=== PATIENT | male | born 1965 | race Caucasian/White ===

== ENCOUNTER 2023-07-08 14:38 | Emergency (ER) | payer SELFPAY ==
[2023-07-08 14:46] VITALS: BP 203/144; PULSE 66; RESP 18; TEMP 37.1; O2SAT 96
--- NOTE | 2023-07-08 14:56 | ED.GENADULT ---
HPI - General Adult General Stated complaint: Body Aches History of Present Illness HPI narrative: Patient presents with generalized body aches and headache. Patient is homeless and has been sleeping outside in the cold. Patient states his home has been condemned and he has nowhere to go to stay warm. Patient denies any shortness of breath no chest pain but has not taken his medications for over 6 months. Patient states he has not had access to medications for over 6 months and feels that he has a headache at the present from elevated blood pressure. Patient denies any family members that could help him states he is homeless and is here for help. Related Data Allergies Allergy/AdvReac Type Severity Reaction Status Date / Time No Known Allergies Allergy Verified 07/08/23 14:59 Review of Systems Review of Systems: CONSTITUTIONAL: Denies fever, chills, or sweats. EYES: Denies visual changes, redness, or discharge. ENT: Denies rhinorrhea, congestion, sore throat, or otalgia. CARDIOVASCULAR: Denies chest pain, palpitations, or edema. RESPIRATORY: Denies cough or dyspnea. GASTROINTESTINAL: Denies abdominal pain, nausea, vomiting, or diarrhea. GENITOURINARY: Denies dysuria or hematuria. SKIN: Denies rash or itching. MUSCULOSKELETAL: Denies back pain, joint pain, or myalgia. NEUROLOGIC: Denies headache, numbness, or weakness. PSYCHIATRIC: Denies anxiety or depression. PMFSH Comments At time of signature, agree with nursing past medical, surgical, social and family history. There is no relevant family history pertinent to the presenting complaint Exam Narrative: GENERAL: Well-appearing, well-nourished, and in no acute distress. HEAD: Normocephalic, atraumatic. EYES: PERRLA and EOMI. ENT: Nares clear, no rhinorrhea or epistaxis. Mucous membranes moist. NECK: Supple. CHEST: Clear to auscultation. No respiratory distress. HEART: Regular rate and rhythm. No murmur heard. Normal peripheral pulses. ABDOMEN: Soft, nontender, nondistended, normal active bowel sounds. EXTREMITIES: Normal range of motion. No edema. SKIN: Warm, dry, no rash. NEURO: No focal deficits. Alert and oriented x3. Narciso Coma Scale Eye Opening: Spontaneous 4 Narciso Coma Scale Motor: Obeys Commands 6 Narciso Coma Scale Verbal: Oriented 5 Narciso Coma Scale Total 15 Course Course Level of Care: Express Care Visit Vital Signs Vital signs: Vital Signs Temperature 37.1 C 07/08/23 14:46 Pulse Rate 66 07/08/23 14:46 Respiratory Rate 18 07/08/23 14:46 Blood Pressure 203/144 H 07/08/23 14:46 Pulse Oximetry 96 07/08/23 14:46 Oxygen Delivery Room Air 07/08/23 14:46 Temperature 37.1 C 07/08/23 14:46 Pulse Rate 66 07/08/23 14:46 Respiratory Rate 18 07/08/23 14:46 Blood Pressure 203/144 H 07/08/23 14:46 Pulse Oximetry 96 07/08/23 14:46 Oxygen Delivery Room Air 07/08/23 14:46 Transfer Transfered to: [facility] Transportation: ALS Transfer rationale: elevated blood pressure higher level of care Accepting physician: Mariana Villarreal comments: higher level of care Medical Decision Making Vital Signs Vital Signs: Vital Signs Temperature 37.1 C 07/08/23 14:46 Pulse Rate 66 07/08/23 14:46 Respiratory Rate 18 07/08/23 14:46 Blood Pressure 203/144 H 07/08/23 14:46 Pulse Oximetry 96 07/08/23 14:46 Oxygen Delivery Room Air 07/08/23 14:46 Temperature 37.1 C 07/08/23 14:46 Pulse Rate 66 07/08/23 14:46 Respiratory Rate 18 07/08/23 14:46 Blood Pressure 203/144 H 07/08/23 14:46 Pulse Oximetry 96 07/08/23 14:46 Oxygen Delivery Room Air 07/08/23 14:46 Discharge Plan Discharge Clinical Impression: Homeless, Elevated blood pressure reading in office with diagnosis of hypertension, Generalized body aches, Medication nonadherence due to psychosocial problem Patient Disposition: Acute Care Hospital Condition: Stable Additional Instructi
--- NOTE | 2023-07-08 15:42 | PC.NURSE ---
Patient has elevated B/P. No new neuro deficits. Will transfer to [facility]. EMS called.
== END 2023-07-08 15:43 | disposition short-term general hospital (02) ==
PROVIDERS: Emergency Provider Nurse Practitioner Family
DX: I10 Essential (primary) hypertension (principal); R52 Pain, unspecified; Z91.148 Patient's other noncompliance with medication regimen for other reason; Z59.00 Homelessness unspecified
CPT/HCPCS: 99215; G0463

== ENCOUNTER 2023-10-08 22:04 | Inpatient (IN) | payer OTHER, MEDICAID, SELFPAY ==
--- NOTE | ~2023-10-08 | CT_ITS ---
EXAMINATION: CTA chest PE protocol DATE: 10/10/2023 16:51 INDICATION: Shortness of breath. TECHNIQUE: Computed tomography angiography (CTA) of the chest was performed with 100 mL Omnipaque-350 intravenous contrast timed to evaluate the pulmonary arteries. Coronal maximum intensity projection 3D-reconstructions were created by the technologist. Automated exposure control and iterative reconst ruction technique were employed. The dose-length product was 183.21 mGy-cm. COMPARISON: None. FINDINGS: There is severe emphysema. There is mild atelectasis bilaterally. There is a cluster of sma ll nodules in right upper lobe. There is a 6 mm nodule in right middle lobe. There is a 4 mm nodule r ight middle lobe. There are airspace opacities in basilar left lower lobe. There is a cluster of smal l nodules in lingula. There are small pleural effusions. The heart size is normal. No pericardial eff usion. There is no pulmonary embolus. There is a 12 mm cyst in right kidney. There is mild thoracic s pondylosis. IMPRESSION: 1. No pulmonary embolus. 2. Severe emphysema. 3. Small pleural effusions. 4. Scattered mild lung findings, likely infection. Noncontrast low-dose chest CT is recommended in 1- 3 months to exclude malignancy. Reviewed, dictated and finalized at location A. IMETER OPERATOR IMPRESSION: 1. No pulmonary embolus. 2. Severe emphysema. 3. Small pleural effusions. 4. Scattered mild lung findings, likely infection. Noncontrast low-dose chest C T is recommended in 1-3 months to exclude malignancy.
--- NOTE | ~2023-10-08 | US_ITS ---
EXAMINATION: US retroperitoneal duplex ltd DATE: 10/09/2023 09:59 INDICATION: Hypertension. TECHNIQUE: Multiple grayscale, color Doppler, and pulsed Doppler images of the kidneys and renal doreen laure were obtained. COMPARISON: None. FINDINGS: The aorta peak systolic velocity is 115 cm/s. The right renal artery peak systolic velocity is 69 cm/ s in the proximal segment, 42 cm/s in the mid segment, and 43 cm/s in the distal segment. The left re nal artery peak systolic velocity is 40 cm/s in the proximal segment, 38 cm/s in the mid segment, and 27 cm/s in the distal segment. IMPRESSION: 1. No Doppler evidence of renal artery stenosis. Reviewed, dictated and finalized at location A. TION MEDICINE SPECIALIST
--- NOTE | ~2023-10-08 | US_ITS ---
EXAMINATION: US renal BI DATE: 10/09/2023 09:57 INDICATION: Hypertension. TECHNIQUE: Multiple ultrasound grayscale images of the kidneys were obtained. COMPARISON: None. FINDINGS: The right kidney measures 12.3 x 3.9 x 6.6 cm. The left kidney measures 11.1 x 4.8 x 5.0 cm. The kidn eys demonstrate normal parenchymal echogenicity. There are cysts in right kidney measuring up to 2.5 cm. There is no hydronephrosis. The bladder is decompressed. IMPRESSION: 1. Normal kidney sizes. No hydronephrosis. Reviewed, dictated and finalized at location A. ET COMMISSIONER
--- NOTE | ~2023-10-08 | XR_ITS ---
Portable chest x-ray Comparison: None Clinical History: Shortness of breath Findings: There is bibasilar interstitial prominence with underlying COPD pattern. Cardiomediastina l silhouette is stable. Bones and soft tissues are unremarkable. Impression: COPD pattern of the lungs. Correlate for superimposed other chronic bibasilar interstitial disease, o r less likely, atypical infection. Reviewed, dictated and finalized at location . YARD PAINTING SUPERVISOR Impression: COPD pattern of the lungs. Correlate for superimposed other chronic bibasilar i nterstitial disease, or less likely, atypical infection.
--- NOTE | ~2023-10-08 | XR_ITS ---
EXAMINATION: XR chest 1V portable DATE: 10/10/2023 12:40 INDICATION: Cough. TECHNIQUE: A single frontal view of the chest was obtained. COMPARISON: Chest single view 10/08/2023 FINDINGS: There are lucencies in the lungs, consistent with emphysema. There is mild atelectasis vers us scarring at left lung base. No pleural effusion or pneumothorax. The heart size is normal. There i s an old healed right rib fracture. IMPRESSION: 1. Emphysema. 2. Mild atelectasis versus scarring at left lung base. Reviewed, dictated and finalized at location A. E REDUCTION COORDINATOR
[2023-10-08 22:01] VITALS: BP 195/130; PULSE 106; RESP 25; TEMP 37.2; O2SAT 92
--- NOTE | 2023-10-08 22:09 | ECG_ITS ---
Measurements Intervals [place] Rate: 105 P: 74 AL: 132 QRS: 71 QRSD: 98 T: 70 QT: 352 QTc: 465 Interpretive Statements SINUS TACHYCARDIA POSSIBLE LEFT ATRIAL ENLARGEMENT [-0.1mV P-WAVE IN V1/V2] ABNORMAL ECG NO PREVIOUS ECG AVAILABLE FOR COMPARISON Electronically Signed On 10-09-2023 8:40:54 MURAL ARTIST by Saud Scott M.D.
[2023-10-08 22:12] VITALS: O2SAT 100
[2023-10-08 22:13] VITALS: PULSE 107
[2023-10-08] MEDS: NITROGLYCERIN SL 0.4 MG TABLET 0.8 MG SUBLINGUAL (22:27)
[2023-10-08 22:28] LABS: Basophils Absolute Auto 0.1 K/mm3 (0.0-0.1); Basophils Percent Auto 0.8 % (0.2-1.2); Eosinophils Absolute Auto 0.2 K/mm3 (0-0.3); Hemoglobin 14.4 g/dL (14.0-18.0); Immature Granulocyte Absolute 0.03 K/mm3 (0.00-0.031); Immature Granulocyte Percent A 0.3 % (0-0.5); Lymphocytes Percent Auto 15.8 % (18.3-44.2); Mean Corpuscular HGB Conc 33.5 g/dl (32-36); Mean Corpuscular Hemoglobin 31.3 pg (26-34); Mean Corpuscular Volume 93.5 fl (80-100); Mean Platelet Volume 9.9 fl (7.4-10.4); Monocytes Percent Auto 9.4 % (2.6-8.5); Neutrophils Absolute Auto 7.7 K/mm3 (1.3-6.7); Neutrophils Percent Auto 71.7 % (45.5-73.1); Platelet Count Result 310 k/mm3 (150-375); Red Cell Distribution Width 14.8 % (11.5-14.5); White Blood Count 10.8 K/mm3 (4.5-10.0)
[2023-10-08 22:45] LABS: Alanine Aminotransferase 34 U/L (6-50); Albumin Level 3.6 g/dL (3.5-5.1); Alkaline Phosphatase 93 U/L (38-126); Anion Gap 8 mmol/L (8-16); Aspartate Amino Transferase 52 U/L (17-59); Bilirubin,Total 0.6 mg/dL (0.2-1.3); Blood Urea Nitrogen 20 mg/dL (9-20); Calcium 8.2 mg/dL (8.4-10.2); Carbon Dioxide 22 mmol/L (22-30); Chloride 109 mmol/L (98-107); Estimated CRCL calculation 65 ml/min; Estimated Glomerular Filt Rate > 60; Glucose 101 mg/dL (65-110); Lactic Acid Reflex 1.2 mmol/L (0.7-2.0); Phosphorus 3.7 mg/dL (2.5-4.5); Potassium 3.6 mmol/L (3.4-5.0); Sodium 139 mmol/L (137-145)
[2023-10-08 22:50] LABS: INR 0.9; Partial Thromboplastin Time 26.9 SECONDS (22.3-36.8); Prothrombin Time 12.3 Seconds (11.1-14.7)
[2023-10-08 22:56] LABS: NT Pro B Type Natriuretic Pept 2130 pg/mL (19.9-100); Troponin I < 0.012 ng/mL (0.000-0.034)
--- NOTE | 2023-10-08 23:09 | ED.GENADULT ---
HPI - General Adult General Chief complaint: Shortness of Breath/Dyspnea Stated complaint: resp distress History of Present Illness HPI narrative: This is a 58-year-old male presenting ED with chief complaint of shortness of breath. EMS was called to custodial for dyspnea. Patient states he awoke frome sleep unable to breath. He also had some just chest discomfort at this time. When EMS arrived he was profoundly hypertensive and hypoxic. Given nitropaste. Was unable to tolerate BiPAP. Placed on nasal cannula with improvement to 95%. Related Data Allergies Allergy/AdvReac Type Severity Reaction Status Date / Time No Known Allergies Allergy Verified 07/08/23 14:59 Exam Narrative: APPEARANCE: No apparent distress. Head: atraumatic. EYES: EOMI, NOSE: Atraumatic NECK: Trachea midline RESPIRATORY: Tachypneic, 1 word dyspnea, rales in all zhao, point of care cardiac thoracic ultrasound showed pulmonary edema CARDIOVASCULAR: RRR, ABDOMINAL: Non-distended MUSCULOSKELETAl: No obvious deformities NEURO: Alert. Moving 4/4 extremities SKIN:: Warm, dry. Normal color PSYCHIATRIC: Normal affect Course Vital Signs Vital signs: Vital Signs Temperature 98.9 F 10/08/23 22:01 Pulse Rate 106 H 10/08/23 22:01 Respiratory Rate 25 H 10/08/23 22:01 Blood Pressure 195/130 H 10/08/23 22:01 Pulse Oximetry 92 10/08/23 22:01 Oxygen Delivery Room Air 10/08/23 22:01 Temperature 98.9 F 10/08/23 22:01 Pulse Rate 78 10/08/23 23:15 Respiratory Rate 18 10/08/23 23:15 Blood Pressure 157/93 H 10/08/23 23:15 Pulse Oximetry 100 10/08/23 23:15 Oxygen Delivery BiPAP 10/08/23 22:12 Medical Decision Making [facility] Narrative Medical decision making narrative: -Course: 58-year-old male presenting with acute respiratory distress. Found to be hypertensive over 220 arrival. POC thoracic ultrasound showed edema in all lung zhao. Given 2 sublingual nitros and transdermal nitro patch. Placed on BiPAP. Respiratory status improved. Presentation consistent with SCAPE/flash pulmonary edema. Patient will be admitted to the IMU for further management. -DDX includes but is not limited to: skate, COPD, pneumonia viral illness -Independent interpretation of studies: white count 10.8. Metabolic panel unremarkable. Troponin undetectable. BNP 1999. -Discussion of Management/Consultants: Juan Duran Hospitalist -Interventions:SL .4 nitro x2. nitropaste transdermal, -Shared decision making / Disposition: Admitted Vital Signs Vital Signs: Vital Signs Temperature 98.9 F 10/08/23 22:01 Pulse Rate 106 H 10/08/23 22:01 Respiratory Rate 25 H 10/08/23 22:01 Blood Pressure 195/130 H 10/08/23 22:01 Pulse Oximetry 92 10/08/23 22:01 Oxygen Delivery Room Air 10/08/23 22:01 Temperature 98.9 F 10/08/23 22:01 Pulse Rate 78 10/08/23 23:15 Respiratory Rate 18 10/08/23 23:15 Blood Pressure 157/93 H 10/08/23 23:15 Pulse Oximetry 100 10/08/23 23:15 Oxygen Delivery BiPAP 10/08/23 22:12 Lab Data 10/08/23 22:14 10/08/23 22:14 Labs: Lab Results 10/08/23 10/08/23 Range/Units 22:14 22:42 WBC 10.8 H (4.5-10.0) K/mm3 RBC 4.60 (4.6-6.20) M/mm3 Hgb 14.4 (14.0-18.0) g/dL Hct 43.0 (42.0-52.0) % MCV 93.5 (80-100) fl MCH 31.3 (26-34) pg MCHC 33.5 (32-36) g/dl RDW 14.8 H (11.5-14.5) % Plt Count 310 (150-375) k/mm3 MPV 9.9 (7.4-10.4) fl Immature Gran % (Auto) 0.3 (0-0.5) % Neut % (Auto) 71.7 (45.5-73.1) % Lymph % (Auto) 15.8 L (18.3-44.2) % [place] % (Auto) 9.4 H (2.6-8.5) % Eos % (Auto) 2.0 (0-4.4) % Baso % (Auto) 0.8 (0.2-1.2) % Lymph # (Auto) 1.70 (0.9-3.2) K/mm3 [place] # (Auto) 1.0 H (0.1-0.6) K/mm3 Eos # (Auto) 0.2 (0-0.3) K/mm3 Baso # (Auto) 0.1 (0.0-0.1) K/mm3 Abs Immat Gran (auto) 0.03 (0.00-0.031) K/mm3 Absolute Neuts (auto) 7.7 H (1.3-6.7) K/mm3 Absol
[2023-10-08 23:15] VITALS: BP 157/93; PULSE 78; RESP 18; O2SAT 100
[2023-10-08] MEDS: NITROGLYCERIN OINTMENT 1 INCH DOSE TRANSDERM (23:22)
[2023-10-08 23:25] LABS: Influenza A QL RT-PCR Negative (Negative); Influenza B QL RT-PCR Negative (Negative); RSV RNA, RT-PCR Negative (Negative); SARS-CoV-2 RNA PCR Negative (Negative)
--- NOTE | 2023-10-08 23:29 | PM.IMHP ---
H&P: HPI History of Present Illness Date/Time: 10/08/23 23:29 Chief Complaint: sob Narrative: This is a 58-year-old male with past medical history significant for COPD, hypertension. Patient presented to the emergency room after waking up from his sleep with severe respiratory distress was brought to the emergency room for evaluation he was found to have a systolic blood pressure in the 200s preliminary workup was significant for chest x-ray with flash pulmonary edema. Most of the history has been obtained upon reviewing medical records patient is currently on BiPAP unable to contribute to history. Preliminary workup was significant for a BNP in the and slight elevation of troponin an EKG showed normal sinus rhythm. Patient is been admitted for further evaluation management and treatment. Portable chest x-ray Comparison: None Clinical History: Shortness of breath Findings:? There is bibasilar interstitial prominence with underlying COPD pattern.? Cardiomediastinal silhouette is stable. Bones and soft tissues are unremarkable. ? Impression: ? COPD pattern of the lungs. Correlate for superimposed other chronic bibasilar interstitial disease, or less likely, atypical infection. Review of Systems Review of Systems: ROS unobtainable: Yes unobtainable due to medical condition (On BiPAP) [facility] Family History Family History (Updated 10/09/23 @ 02:41 by Eden Durant RN) Mother Congestive heart failure Father Chronic obstructive pulmonary disease Social History Social History Smoking status: Former smoker Alcohol intake: never Substance use: former Do You Feel Safe in your Home?: Yes Lack of Transportation: No Lack of Food: Sometimes True Current Housing: I Do Not Have Housing Concerned About Future Housing: YES Difficulty Paying Gas/Electric Bills: No Difficulty Paying for Meds: No Currently Unemployed: No Education: Grade School Difficulty w/ Childcare or Family Care: No Spiritual care concerns: No Meds Home Medications and Allergies Home Medications Medication Instructions Recorded Confirmed Type Daily Multivitamin-Minerals 1 tablet PO DAILY 10/09/23 10/09/23 History albuterol sulfate 2 puff inhalation 4-6XD PRN SOB 10/09/23 10/09/23 History amlodipine 10 mg tablet 10 mg PO DAILY 10/09/23 10/09/23 History aspirin 81 mg tablet,delayed 81 mg PO DAILY 10/09/23 10/09/23 History release atorvastatin 20 mg tablet 20 mg PO HS 10/09/23 10/09/23 History budesonide-formoterol HFA 160 2 puff inhalation BID 10/09/23 10/09/23 History mcg-4.5 mcg/actuation aerosol inhaler (Symbicort) clonidine HCl 0.2 mg tablet 0.2 mg PO BID 10/09/23 10/09/23 History guaifenesin 600 mg tablet, 600 mg PO Q12H 10/09/23 10/09/23 History extended release 12 hr (Mucinex) hydralazine 25 mg tablet 25 mg PO BID 10/09/23 10/09/23 History hydroxyzine HCl 25 mg tablet 25 mg PO QID PRN Itching 10/09/23 10/09/23 History ibuprofen 600 mg tablet 600 mg PO QID PRN Pain 10/09/23 10/09/23 History propranolol 20 mg tablet 20 mg PO DAILY 10/09/23 10/09/23 History thiamine HCl (vitamin B1) 100 mg 100 mg PO DAILY 10/09/23 10/09/23 History tablet Allergies Allergy/AdvReac Type Severity Reaction Status Date / Time No Known Allergies Allergy Verified 07/08/23 14:59 Vital Signs Vital Signs - 24 hr 10/08/23 22:01 10/08/23 22:12 10/08/23 22:13 Temperature 98.9 F Pulse Rate 106 H 107 H Respiratory Rate 25 H Blood Pressure 195/130 H Pulse Oximetry 92 100 Oxygen Delivery Room Air BiPAP 10/08/23 23:15 Temperature Pulse Rate 78 Respiratory Rate 18 Blood Pressure 157/93 H Pulse Oximetry 100 Oxygen Delivery Exam Narrative: Patient is laying in a stretcher Const: General: comfortable, no acute distress, well developed, alert, awake, ill appearing chronically, underweight and other (Patie
[2023-10-09] VITALS (13 sets, daily range): BP systolic 143–172; BP diastolic 81–100; PULSE 74–115; RESP 15–26; TEMP 36.4–37; O2SAT 93–100; BMI 17.4
--- NOTE | 2023-10-09 | ECHO_ITS ---
Patient Info Name: Kaushal Tobar Age: 58 years : 1965 Gender: Male Ht: 69 in Wt: 117 lbs BSA: 1.59 m2 HR: 82 bpm BP: 146 / 91 mmHg Heart Rhythm: Sinus Rhythm Technical Quality: Fair Exam Date: 10/09/2023 11:23 AM Exam Location: Echo Lab Patient Status: Inpatient Admit Date: 10/09/2023 Staff Ordering Physician: Jitendra Martinez MD Parts Washer: Maryellen Anderson RDCS Attending Provider: Jitendra Martinez MD Referring Physician: Juan OWEN; Exam Type: CA echo doppler color flow Study Info Indications I10 - Essential (primary) hypertension Complete two-dimensional, color flow and Doppler transthoracic echocardiogram is performed. Summary 1. Complete two-dimensional, color flow and Doppler transthoracic echocardiogram is performed. 2. Normal left ventricular size, thickness systolic and diastolic function. 3. Normal appearing and functioning cardiac valves. Left Ventricle Left ventricular chamber dimension is normal. Left ventricular systolic function is normal, estimated at 55-60%. The left ventricular diastolic function is normal. Right Ventricle Right ventricular chamber dimension is normal. Left Atria Left atrial chamber dimension is normal. Right Atria Right atrial chamber dimension is normal. Aortic Valve The aortic valve is normal. Pulmonic Valve The pulmonic valve is not well visualized. Mitral Valve The mitral valve has normal leaflets. Tricuspid Valve The tricuspid valve leaflets are normal. Pericardium/Pleural The pericardium appears normal. Aorta The aortic root size at the sinus of Valsalva is normal. Report Signatures
--- NOTE | 2023-10-09 01:10 | ECG_ITS ---
Measurements Intervals [place] Rate: 76 P: 75 FL: 150 QRS: 63 QRSD: 88 T: 75 QT: 407 QTc: 458 Interpretive Statements SINUS RHYTHM NORMAL ECG COMPARED TO ECG 10/08/2023 22:06:36 SINUS RHYTHM NOW PRESENT Electronically Signed On 10-09-2023 8:41:43 KNOT TIER by Saud Scott M.D.
--- NOTE | 2023-10-09 02:06 | ADMGEN ---
This patient, Kaushal Tobar, was admitted to IMU Room 209-01. Patient/family oriented to hospital policies and general routines including ID bracelet, bed and alarms, visiting hours, pain management, procedures, bathroom and other care routines, personal items, smoking policy, room service/diet, and visiting hours. Information on how to activate the Rapid Response Team has been discussed. Patient/Family are encouraged to report perceived risks to care and to ask questions if they do not understand what they are told or what they should do.
[2023-10-09 06:17] LABS: Troponin I 0.057 ng/mL (0.000-0.034)
--- NOTE | 2023-10-09 06:24 | PC.NURSE ---
Spoke to Dr. Martinez regarding propranolol clairification. [facility] documentation does not state whether it is IR or extended release. Dr. Martinez states leave it on hold for clarification today.
[2023-10-09] MEDS: FLUTICASONE/SALMETEROL 115-21 MCG INHALER 1 PUFF 2 PUFF INHALATION ×2 (07:55→20:57)
--- NOTE | 2023-10-09 08:20 | PM.IMPN ---
Progress Note: A&P Assessment and Plan (1) Hypertensive emergency: Code(s): I16.1 - Hypertensive emergency Status: Acute (2) Flash pulmonary edema: Code(s): J81.0 - Acute pulmonary edema Status: Acute (3) Acute hypoxic respiratory failure: Code(s): J96.01 - Acute respiratory failure with hypoxia Status: Acute Plan THIS IS A 58-YEAR-OLD MALE COMING FROM GROUP HOME FOR SHORTNESS OF BREATH THAT STARTED AND WOKE HIM UP LAST NIGHT. HE ALSO HAD SOME CHEST DISCOMFORT ALONG WITH SHORTNESS OF BREATH. EMS WAS CALLED RIGHT AWAY. HE WAS NOTED TO BE PROFOUNDLY HYPERTENSIVE AND HYPOXIC NITROPASTE WAS DIVIDED HE WAS ATTEMPTED TO BE PUT ON BIPAP BUT WAS UNABLE TO TOLERATE AND HENCE PLACED ON NASAL CANNULA WITH IMPROVEMENT OF OXYGENATION TO 95% ON ARRIVAL TO THE ED HE WAS NOTED TO BE TACHYPNEIC 1 WORD DYSPNEA RALES IN ALL his lungs. Bedside uLTRASOUND WAS DONE WHICH SHOWED PULMONARY EDEMA. TRANSDERMAL NITRO PATCH WAS PLACED HE WAS THEN PLACED ON BIPAP WITH IMPROVEMENT OF THE RESPIRATORY STATUS SUBSEQUENTLY. BNP ELEVATED 1999 INITIAL TROPONIN NEGATIVE BUT SUBSEQUENT TROPONIN ELEVATED TO 0.92955.053 BNP AT 2130 SARS COVID RSV AND FLU NEGATIVE LACTATE IS NORMAL CHEST X-RAY WITH PATTERN OF COPD WITH MILD INTERSTITIAL PROMINENCE. UNDERLYING HISTORY OF HYPERTENSION AND COPD HYPERLIPIDEMIA CONTINUE ASPIRIN 81 MG DAILY GET ECHOCARDIOGRAM. Similar presentation a month ago when he was diagnosed with pneumonia was treated at [facility]. Medical records were reviewed. CARDIOLOGY CONSULTATION FOR FLASH PULMONARY EDEMA. EVALUATE RENAL ARTERY STENOSIS WILL ORDER RENAL ARTERY DUPLEX ULTRASOUND. BLOOD PRESSURE CONTROL TITRATE MEDICATION NEEDED EKG WITH NORMAL SINUS RHYTHM WITHOUT ANY ACUTE ST-T CHANGES. DVT PROPHYLAXIS LOVENOX Subjective Date/time seen: 10/09/23 08:20 Interval history: No overnight events. Was recently admitted at [facility] for pneumonia present with shortness of breath that time as well. Was homeless and was sent to a nursing facility at [facility]. Presented back with acute onset shortness of breath with respiratory distress. Review of Systems Review of Systems: All systems reviewed & are unremarkable except as noted in HPI and below Exam Narrative: APPEARANCE: No apparent distress. Head: atraumatic. EYES:? EOMI, NOSE: Atraumatic NECK: Trachea midline RESPIRATORY: Clear to auscultation no respiratory distress CARDIOVASCULAR: RRR, ABDOMINAL: Non-distended MUSCULOSKELETAl: No obvious deformities NEURO: Alert. Moving 4/4 extremities SKIN:: Warm, dry. Normal color PSYCHIATRIC: Normal affect Objective Data Vital Signs Vital Signs: Vital Signs - 24 hr 10/08/23 22:01 10/08/23 22:12 10/08/23 22:13 Temperature 98.9 F Pulse Rate 106 H 107 H Respiratory Rate 25 H Blood Pressure 195/130 H Pulse Oximetry 92 100 Oxygen Delivery Room Air BiPAP 10/08/23 23:15 10/09/23 00:31 10/09/23 02:09 Temperature 97.7 F Pulse Rate 78 90 74 Respiratory Rate 18 15 18 Blood Pressure 157/93 H 143/97 H 156/92 H Pulse Oximetry 100 100 100 Oxygen Delivery 10/09/23 00:10 10/09/23 02:18 10/09/23 04:18 Temperature 97.5 F L Pulse Rate 115 H 112 H 82 Respiratory Rate 26 H 20 18 Blood Pressure 146/91 H Pulse Oximetry 100 100 95 Oxygen Delivery BiPAP BiPAP 10/09/23 04:00 10/09/23 07:56 10/09/23 07:55 Temperature 98.2 F Pulse Rate 82 80 79 Respiratory Rate 18 18 18 Blood Pressure 172/100 H Pulse Oximetry 95 94 93 Oxygen Delivery Room Air Room Air 10/09/23 02:00 10/09/23 04:00 Temperature Pulse Rate 78 81 Respiratory Rate Blood Pressure Pulse Oximetry Oxygen Delivery Intake/Output Intake/Output: Intake & Output 10/06/23 10/07/23 10/08/23 10/09/23 23:59 23:59 23:59 23:59 Intake Total 200 Output Total 925 Balance -725 Meds/Results Medications: Active Medications Generic Name Dose Route Start Last Admin
[2023-10-09] MEDS: guaiFENesin 12 HR 600 MG TABCR PO ×2 (08:29→20:18)
[2023-10-09] MEDS: cloNIDine HCL 0.2 MG TABLET PO ×2 (08:29→16:54)
[2023-10-09] MEDS: ASPIRIN 81 MG ENTERIC TABLET PO (08:29)
[2023-10-09] MEDS: THIAMINE HCL 100 MG TABLET PO (08:29)
[2023-10-09] MEDS: THERAPEUTIC MULTIVITAMINS/MINERALS TAB (*BKC) 1 TABLET PO (08:29)
[2023-10-09] MEDS: amLODIPine BESYLATE 5 MG TABLET 10 MG PO (08:30)
[2023-10-09] MEDS: hydrALAZINE HCL 25 MG TABLET PO ×4 (08:30→20:19)
--- NOTE | 2023-10-09 10:51 | PM.CNCAR ---
Assessment and Plan Assessment and plan (1) Elevated troponin: Code(s): R79.89 - Other specified abnormal findings of blood chemistry Status: Acute Assessment and Plan: His troponin levels are mildly elevated and essentially flat in the setting of significant hypertension and flash pulmonary edema. There is no clinical concern for ACS as he is denying chest pain. Certainly cannot rule out underlying coronary artery disease but this troponin leak does not represent ACS/acute plaque rupture. Echocardiogram was ordered and is unremarkable. Cardiology will sign off. Please call with any questions. (2) Hypertensive emergency: Code(s): I16.1 - Hypertensive emergency Status: Acute Assessment and Plan: BP 203/144 at presentation. Improving. Use caution to avoid abrupt, significant decrease in SBP. For now, will not make any adjustments to his antihypertensive regimen. (3) Flash pulmonary edema: Code(s): J81.0 - Acute pulmonary edema Status: Acute Assessment and Plan: Related to hypertensive emergency. Resolved. History of Present Illness History of Present Illness Consult date/time: 10/09/23 10:51 Requesting physician: Oscar Lyons MD Consult reason: Other (elevated troponin) Reason For Visit: Pulmonary Edema Narrative: Kaushal Tobar is a 58 year old male with hypertension. He comes to the hospital with a chief complaint of shortness of breath. He states he had an abrupt onset of shortness of breath last evening that woke him from sleep. He was found to be significantly hypertensive and was in flash pulmonary edema. He was treated appropriately for this and is feeling much better and has no symptoms at this point. During his evaluation troponin levels were drawn and were mildly elevated. Cardiology is being asked to see him for this reason. He is currently denying any chest pain and denies any history of chest pain. Aside from hypertension he denies any history of cardiac problems. Review of Systems Review of Systems: All systems reviewed & are unremarkable except as noted in HPI and below [facility] Family History Family History Mother Congestive heart failure Father Chronic obstructive pulmonary disease Social History Social History Smoking status: Former smoker Alcohol intake: never Substance use: former Do You Feel Safe in your Home?: Yes Lack of Transportation: No Lack of Food: Sometimes True Current Housing: I Do Not Have Housing Concerned About Future Housing: YES Difficulty Paying Gas/Electric Bills: No Difficulty Paying for Meds: No Currently Unemployed: No Education: Grade School Difficulty w/ Childcare or Family Care: No Spiritual care concerns: No Meds Home Medications and Allergies Home Medications Medication Instructions Recorded Confirmed Type Daily Multivitamin-Minerals 1 tablet PO DAILY 10/09/23 10/09/23 History albuterol sulfate 2 puff inhalation 4-6XD PRN SOB 10/09/23 10/09/23 History amlodipine 10 mg tablet 10 mg PO DAILY 10/09/23 10/09/23 History aspirin 81 mg tablet,delayed 81 mg PO DAILY 10/09/23 10/09/23 History release atorvastatin 20 mg tablet 20 mg PO HS 10/09/23 10/09/23 History budesonide-formoterol HFA 160 2 puff inhalation BID 10/09/23 10/09/23 History mcg-4.5 mcg/actuation aerosol inhaler (Symbicort) clonidine HCl 0.2 mg tablet 0.2 mg PO BID 10/09/23 10/09/23 History guaifenesin 600 mg tablet, 600 mg PO Q12H 10/09/23 10/09/23 History extended release 12 hr (Mucinex) hydralazine 25 mg tablet 25 mg PO BID 10/09/23 10/09/23 History hydroxyzine HCl 25 mg tablet 25 mg PO QID PRN Itching 10/09/23 10/09/23 History ibuprofen 600 mg tablet 600 mg PO QID PRN Pain 10/09/23 10/09/23 History propranolol 20 mg tablet 20 mg PO DAILY 10/09/23 10/09/23 History t
--- NOTE | 2023-10-09 17:13 | PC.NURSE ---
pt med/surg status- report given to Peter RN- pt to moving to room 248 via bed
--- NOTE | 2023-10-09 18:01 | PC.NURSE ---
transferred to room 248
--- NOTE | 2023-10-09 18:06 | PC.NURSE ---
This patient, Kaushal Tobar, was received from IMU on 10/09/23 at 1808. Patient/family oriented to unit policies and routines
[2023-10-09] MEDS: ATORVASTATIN 20 MG TABLET PO (20:19)
[2023-10-10] VITALS (12 sets, daily range): BP systolic 136–160; BP diastolic 76–92; PULSE 76–87; RESP 16–22; TEMP 36.7–36.9; O2SAT 93–97
[2023-10-10 06:20] LABS: Basophils Absolute Auto 0.1 K/mm3 (0.0-0.1); Eosinophils Absolute Auto 0.2 K/mm3 (0-0.3); Eosinophils Percent Auto 1.9 % (0-4.4); Hematocrit 42.1 % (42.0-52.0); Hemoglobin 14.3 g/dL (14.0-18.0); Immature Granulocyte Absolute 0.02 K/mm3 (0.00-0.031); Immature Granulocyte Percent A 0.3 % (0-0.5); Lymphocytes Absolute Auto 1.32 K/mm3 (0.9-3.2); Lymphocytes Percent Auto 16.6 % (18.3-44.2); Mean Corpuscular Hemoglobin 31.2 pg (26-34); Mean Corpuscular Volume 91.9 fl (80-100); Mean Platelet Volume 9.4 fl (7.4-10.4); Monocytes Absolute Auto 0.9 K/mm3 (0.1-0.6); Monocytes Percent Auto 10.9 % (2.6-8.5); Neutrophils Absolute Auto 5.5 K/mm3 (1.3-6.7); Neutrophils Percent Auto 69.3 % (45.5-73.1); Platelet Count Result 318 k/mm3 (150-375); Red Blood Count 4.58 M/mm3 (4.6-6.20); Red Cell Distribution Width 14.7 % (11.5-14.5)
[2023-10-10 06:34] LABS: Alanine Aminotransferase 31 U/L (6-50); Albumin Level 3.3 g/dL (3.5-5.1); Alkaline Phosphatase 91 U/L (38-126); Anion Gap 6 mmol/L (8-16); Aspartate Amino Transferase 44 U/L (17-59); Bilirubin,Total 0.8 mg/dL (0.2-1.3); Blood Urea Nitrogen 18 mg/dL (9-20); Calcium 8.6 mg/dL (8.4-10.2); Carbon Dioxide 22 mmol/L (22-30); Chloride 110 mmol/L (98-107); Estimated CRCL calculation 61 ml/min; Estimated Glomerular Filt Rate > 60; Glucose 100 mg/dL (65-110); Magnesium 2.1 mg/dL (1.6-2.3); Sodium 138 mmol/L (137-145)
[2023-10-10] MEDS: FLUTICASONE/SALMETEROL 115-21 MCG INHALER 1 PUFF 2 PUFF INHALATION ×2 (08:20→20:49)
[2023-10-10] MEDS: THIAMINE HCL 100 MG TABLET PO (09:18)
[2023-10-10] MEDS: guaiFENesin 12 HR 600 MG TABCR PO ×2 (09:18→21:02)
[2023-10-10] MEDS: amLODIPine BESYLATE 5 MG TABLET 10 MG PO (09:18)
[2023-10-10] MEDS: THERAPEUTIC MULTIVITAMINS/MINERALS TAB (*BKC) 1 TABLET PO (09:18)
[2023-10-10] MEDS: ASPIRIN 81 MG ENTERIC TABLET PO (09:18)
[2023-10-10] MEDS: cloNIDine HCL 0.2 MG TABLET PO ×3 (09:18→23:10)
[2023-10-10] MEDS: hydrALAZINE HCL 25 MG TABLET PO ×4 (09:19→21:02)
[2023-10-10] MEDS: IPRATROPIUM 0.5 MG/ALBUTEROL SULFATE 2.5 MG AMPUL.NEB 3 ML INHALATION ×2 (13:23→20:48)
--- NOTE | 2023-10-10 13:37 | PM.IMPN ---
Progress Note: A&P Assessment and Plan (1) Hypertensive emergency: Code(s): I16.1 - Hypertensive emergency Status: Acute (2) Flash pulmonary edema: Code(s): J81.0 - Acute pulmonary edema Status: Acute (3) Acute hypoxic respiratory failure: Code(s): J96.01 - Acute respiratory failure with hypoxia Status: Acute Plan THIS IS A 58-YEAR-OLD MALE COMING FROM SNF FOR SHORTNESS OF BREATH THAT STARTED AND WOKE HIM UP LAST NIGHT. HE ALSO HAD SOME CHEST DISCOMFORT ALONG WITH SHORTNESS OF BREATH. EMS WAS CALLED RIGHT AWAY. HE WAS NOTED TO BE PROFOUNDLY HYPERTENSIVE AND HYPOXIC NITROPASTE WAS applied. HE WAS ATTEMPTED TO BE PUT ON BIPAP BUT WAS UNABLE TO TOLERATE AND HENCE PLACED ON NASAL CANNULA WITH IMPROVEMENT OF OXYGENATION TO 95% ON ARRIVAL TO THE ED HE WAS NOTED TO BE TACHYPNEIC 1 WORD DYSPNEA RALES IN ALL his lungs. Bedside uLTRASOUND WAS DONE WHICH SHOWED PULMONARY EDEMA. TRANSDERMAL NITRO PATCH WAS PLACED HE WAS THEN PLACED ON BIPAP WITH IMPROVEMENT OF THE RESPIRATORY STATUS SUBSEQUENTLY. BNP ELEVATED 1999 INITIAL TROPONIN NEGATIVE BUT SUBSEQUENT TROPONIN ELEVATED TO 0.49908.053 BNP AT 2130 SARS COVID RSV AND FLU NEGATIVE LACTATE IS NORMAL CHEST X-RAY WITH PATTERN OF COPD WITH MILD INTERSTITIAL PROMINENCE. UNDERLYING HISTORY OF HYPERTENSION AND COPD HYPERLIPIDEMIA CONTINUE ASPIRIN 81 MG DAILY echocardiogram performed 10/09/2023 with normal EF at 55-60% no valvular abnormalities noted. Similar presentation a month ago when he was diagnosed with pneumonia was treated at [facility]. Medical records were reviewed. CARDIOLOGY CONSULTATION FOR FLASH PULMONARY EDEMA. EVALUATE RENAL ARTERY STENOSIS with a renal duplex which came back negative for renal artery stenosis. BLOOD PRESSURE CONTROL TITRATE MEDICATION NEEDED will increase clonidine to q.8 hour. EKG WITH NORMAL SINUS RHYTHM WITHOUT ANY ACUTE ST-T CHANGES. DVT PROPHYLAXIS LOVENOX. Check D-dimer. Recheck chest x-ray with signs of emphysema. Subjective Date/time seen: 10/10/23 13:37 Interval history: New complaints. Mild shortness of breath reported with some cough no fever chills. Echocardiogram reviewed with the patient. Review of Systems Review of Systems: All systems reviewed & are unremarkable except as noted in HPI and below Exam Narrative: APPEARANCE: No apparent distress. Head: atraumatic. EYES:? EOMI, NOSE: Atraumatic NECK: Trachea midline RESPIRATORY: Clear to auscultation no respiratory distress CARDIOVASCULAR: RRR, ABDOMINAL: Non-distended MUSCULOSKELETAl: No obvious deformities NEURO: Alert. Moving 4/4 extremities SKIN:: Warm, dry. Normal color PSYCHIATRIC: Normal affect Objective Data Vital Signs Vital Signs: Vital Signs - 24 hr 10/09/23 15:34 10/09/23 18:20 10/09/23 20:00 Temperature 98.5 F 98.6 F Pulse Rate 82 90 Respiratory Rate 18 20 Blood Pressure 145/91 H 151/84 H Pulse Oximetry 95 93 Oxygen Delivery Room Air 10/09/23 20:38 10/10/23 05:44 10/10/23 08:23 Temperature 98.0 F 98.3 F Pulse Rate 87 77 Respiratory Rate 22 H 22 H Blood Pressure 147/82 H 139/92 H Pulse Oximetry 94 97 93 Oxygen Delivery Room Air 10/10/23 09:10 10/10/23 09:15 10/10/23 12:27 Temperature Pulse Rate 81 84 Respiratory Rate Blood Pressure 160/86 H 159/76 H Pulse Oximetry 96 Oxygen Delivery Room Air 10/10/23 13:23 10/10/23 13:33 Temperature Pulse Rate 86 80 Respiratory Rate 16 16 Blood Pressure Pulse Oximetry Oxygen Delivery Intake/Output Intake/Output: Intake & Output 10/07/23 10/08/23 10/09/23 10/10/23 23:59 23:59 23:59 23:59 Intake Total 920 860 Output Total 1700 1500 Balance -005 -318 Meds/Results Medications: Active Medications Generic Name Dose Route Start Last Admin Trade Name Freq PRN Reason Stop Dose Admin Albuterol 2 puff 10/09/23 05:23 Albuterol Sulfate (*Sp) Aerosol 1 Puff INHALATION Q4H PRN
[2023-10-10 14:28] LABS: D Dimer 0.74 ug/mL (<0.48)
[2023-10-10] MEDS: ATORVASTATIN 20 MG TABLET PO (21:02)
[2023-10-11] VITALS (8 sets, daily range): BP systolic 126–145; BP diastolic 71–89; PULSE 74–92; RESP 16–18; TEMP 36.7; O2SAT 91–95
[2023-10-11] MEDS: IPRATROPIUM 0.5 MG/ALBUTEROL SULFATE 2.5 MG AMPUL.NEB 3 ML INHALATION ×3 (01:49→13:05)
[2023-10-11] MEDS: cloNIDine HCL 0.2 MG TABLET PO ×2 (05:02→15:10)
[2023-10-11 05:29] LABS: Basophils Absolute Auto 0.1 K/mm3 (0.0-0.1); Basophils Percent Auto 0.9 % (0.2-1.2); Eosinophils Absolute Auto 0.1 K/mm3 (0-0.3); Eosinophils Percent Auto 1.6 % (0-4.4); Hemoglobin 13.5 g/dL (14.0-18.0); Immature Granulocyte Absolute 0.02 K/mm3 (0.00-0.031); Immature Granulocyte Percent A 0.3 % (0-0.5); Lymphocytes Absolute Auto 1.31 K/mm3 (0.9-3.2); Lymphocytes Percent Auto 17.4 % (18.3-44.2); Mean Corpuscular HGB Conc 33.8 g/dl (32-36); Mean Corpuscular Hemoglobin 31.2 pg (26-34); Mean Corpuscular Volume 92.4 fl (80-100); Monocytes Absolute Auto 0.9 K/mm3 (0.1-0.6); Monocytes Percent Auto 11.8 % (2.6-8.5); Neutrophils Absolute Auto 5.1 K/mm3 (1.3-6.7); Platelet Count Result 331 k/mm3 (150-375); Red Blood Count 4.33 M/mm3 (4.6-6.20); Red Cell Distribution Width 14.8 % (11.5-14.5); White Blood Count 7.5 K/mm3 (4.5-10.0)
[2023-10-11 05:54] LABS: Alanine Aminotransferase 29 U/L (6-50); Albumin Level 3.2 g/dL (3.5-5.1); Alkaline Phosphatase 82 U/L (38-126); Aspartate Amino Transferase 48 U/L (17-59); Bilirubin,Total 0.4 mg/dL (0.2-1.3); Blood Urea Nitrogen 17 mg/dL (9-20); Calcium 8.5 mg/dL (8.4-10.2); Carbon Dioxide 22 mmol/L (22-30); Estimated CRCL calculation 51 ml/min; Estimated Glomerular Filt Rate > 60; Glucose 98 mg/dL (65-110); Magnesium 2.3 mg/dL (1.6-2.3)
[2023-10-11 06:14] LABS: Anion Gap 6 mmol/L (8-16); Chloride 109 mmol/L (98-107); Potassium 4.1 mmol/L (3.4-5.0); Sodium 137 mmol/L (137-145)
[2023-10-11] MEDS: FLUTICASONE/SALMETEROL 115-21 MCG INHALER 1 PUFF 2 PUFF INHALATION (07:15)
--- NOTE | 2023-10-11 07:38 | PM.IMPN ---
Progress Note: A&P Assessment and Plan (1) Hypertensive emergency: Code(s): I16.1 - Hypertensive emergency Status: Acute (2) Flash pulmonary edema: Code(s): J81.0 - Acute pulmonary edema Status: Acute (3) Acute hypoxic respiratory failure: Code(s): J96.01 - Acute respiratory failure with hypoxia Status: Acute Plan THIS IS A 58-YEAR-OLD MALE COMING FROM CARE HOME FOR SHORTNESS OF BREATH THAT STARTED AND WOKE HIM UP LAST NIGHT. HE ALSO HAD SOME CHEST DISCOMFORT ALONG WITH SHORTNESS OF BREATH. EMS WAS CALLED RIGHT AWAY. HE WAS NOTED TO BE PROFOUNDLY HYPERTENSIVE AND HYPOXIC NITROPASTE WAS applied. HE WAS ATTEMPTED TO BE PUT ON BIPAP BUT WAS UNABLE TO TOLERATE AND HENCE PLACED ON NASAL CANNULA WITH IMPROVEMENT OF OXYGENATION TO 95% ON ARRIVAL TO THE ED HE WAS NOTED TO BE TACHYPNEIC 1 WORD DYSPNEA RALES IN ALL his lungs. Bedside uLTRASOUND WAS DONE WHICH SHOWED PULMONARY EDEMA. TRANSDERMAL NITRO PATCH WAS PLACED HE WAS THEN PLACED ON BIPAP WITH IMPROVEMENT OF THE RESPIRATORY STATUS SUBSEQUENTLY. BNP ELEVATED 1999 INITIAL TROPONIN NEGATIVE BUT SUBSEQUENT TROPONIN ELEVATED TO 0.92562.053 BNP AT 2130 SARS COVID RSV AND FLU NEGATIVE LACTATE IS NORMAL CHEST X-RAY WITH PATTERN OF COPD WITH MILD INTERSTITIAL PROMINENCE. UNDERLYING HISTORY OF HYPERTENSION AND COPD HYPERLIPIDEMIA CONTINUE ASPIRIN 81 MG DAILY echocardiogram performed 10/09/2023 with normal EF at 55-60% no valvular abnormalities noted. Similar presentation a month ago when he was diagnosed with pneumonia was treated at [facility]. Medical records were reviewed. CARDIOLOGY CONSULTATION FOR FLASH PULMONARY EDEMA. EVALUATE RENAL ARTERY STENOSIS with a renal duplex which came back negative for renal artery stenosis. BLOOD PRESSURE CONTROL TITRATE MEDICATION NEEDED will increase clonidine to q.8 hour. EKG WITH NORMAL SINUS RHYTHM WITHOUT ANY ACUTE ST-T CHANGES. DVT PROPHYLAXIS LOVENOX. Check D-dimer. Recheck chest x-ray with signs of emphysema. (1) Elevated troponin: ?Code(s): R79.89 - Other specified abnormal findings of blood chemistry ?Status:?Acute ?Assessment and Plan: Possible demand ischemia due to uncontrolled hypertension and pulmonary edema His troponin levels are mildly elevated and essentially flat in the setting of significant hypertension and flash pulmonary edema.? Appreciate cardiology's consultation, It Telecom Technician does not consider ACS Echocardiogram was ordered and is unremarkable 10/09 (2) Hypertensive emergency: ?Code(s): I16.1 - Hypertensive emergency ?Status:?Acute ?Assessment and Plan: BP 203/144 at presentation.? well controlled Continue current medication amlodipine 10 mg daily p.o., clonidine 0.2 mg q.8 hours p.o. Change hydralazine 50 mg t.i.d. p.o. (3) Flash pulmonary edema: ?Code(s): J81.0 - Acute pulmonary edema ?Status:?Acute ?Assessment and Plan: Related to hypertensive emergency.? Resolved. Pulse ox 95 on room air Acute bacteria bronchitis Patient has cough with greenish sputum Suspecting better bronchitis, start doxycycline p.o. 100 mg q.12 hours for 5 days Moderate malnutrition BMI 17.5 Muscle waste Consult dietitian for recommendations Plans discharge patient back to retirement today Subjective Date/time seen: 10/11/23 07:38 Interval history: I saw exam patient today, patient denies chest pain, shortness of breath, headache, abdomen pain, nausea vomiting diarrhea. Patient has a cough with some greenish sputum, suspecting better bronchitis Exam Narrative: GENERAL: Pleasant, in no acute distress. Well-nourished. - EYES: EOMI. Anicteric. - HENT: Moist mucous membranes. - LUNGS: Clear to auscultation bilaterally, no wheezing, rhonchi, or rales. - CARDIOVASCULAR: Regular rate and rhythm. No murmur. No JVD. - ABDOMEN: Soft, non-tender and non-distended. No palpable masses. - EXTREMITIES: No edema. Peripheral pulses 2+. Non-te
--- NOTE | 2023-10-11 07:55 | P.CDI_ITS ---
CDI Query Clarification Request Documentation in the medical record indicates that this patient has a: BMI 17.4 The following is also documented in the medical record : Nutritional Diagnostic statement: Underweight related to poor po intake as evidenced by pt report and noted BMI 17.4. Based on your medical judgement , can you further clarify in the progress notes the diagnosis associated with these findings such as: * Underweight * Cachexia * Emaciation * Malnutrition * Undernutrition * Anorexia * Other condition(please specify) * None of the above/Not applicable. <Shamika Beltran RN - Last Filed: 10/11/23 08:00> Clarified Diagnosis Clarified Diagnosis: Moderate malnutrition <Josie Clinton MD - Last Filed: 10/11/23 12:34>
[2023-10-11] MEDS: THIAMINE HCL 100 MG TABLET PO (08:54)
[2023-10-11] MEDS: THERAPEUTIC MULTIVITAMINS/MINERALS TAB (*BKC) 1 TABLET PO (08:55)
[2023-10-11] MEDS: hydrALAZINE HCL 25 MG TABLET PO ×2 (08:55→12:59)
[2023-10-11] MEDS: guaiFENesin 12 HR 600 MG TABCR PO (08:55)
[2023-10-11] MEDS: amLODIPine BESYLATE 5 MG TABLET 10 MG PO (08:55)
[2023-10-11] MEDS: ASPIRIN 81 MG ENTERIC TABLET PO (08:55)
--- NOTE | 2023-10-11 12:39 | PM.DS ---
DS: Admitting Diagnosis Discharge Date 10/11/23 Admitting Diagnosis (1) Hypertensive emergency: ?Code(s): I16.1 - Hypertensive emergency ?Status:?Acute (2) Flash pulmonary edema: ?Code(s): J81.0 - Acute pulmonary edema ?Status:?Acute (3) Acute hypoxic respiratory failure: ?Code(s): J96.01 - Acute respiratory failure with hypoxia ?Status:?Acute DS: Discharge Diagnosis Discharge Diagnosis (1) Hypertensive emergency: Code(s): I16.1 - Hypertensive emergency Status: Acute (2) Flash pulmonary edema: Code(s): J81.0 - Acute pulmonary edema Status: Acute (3) Acute hypoxic respiratory failure: Code(s): J96.01 - Acute respiratory failure with hypoxia Status: Acute DS: Summary Hospital Course Hospital Course: This is a 58-year-old male with past medical history significant for COPD, hypertension.? Patient presented to the emergency room after waking up from his sleep with severe respiratory distress was brought to the emergency room for evaluation he was found to have a systolic blood pressure in the 200s preliminary workup was significant for chest x-ray with flash pulmonary edema.? Most of the history has been obtained upon reviewing medical records patient is currently on BiPAP unable to contribute to history.? Preliminary workup was significant for a BNP in the and slight elevation of troponin an EKG showed normal sinus rhythm.? Patient is been admitted for further evaluation management and treatment. The following medical issues have been addressed during hospitalization (1) Elevated troponin: ?Code(s): R79.89 - Other specified abnormal findings of blood chemistry ?Status:?Acute ?Assessment and Plan: Possible demand ischemia due to uncontrolled hypertension and pulmonary edema His troponin levels are mildly elevated and essentially flat in the setting of significant hypertension and flash pulmonary edema.? Appreciate cardiology's consultation, Bilingual Trainer does not consider ACS Echocardiogram was ordered and is unremarkable 10/09 (2) Hypertensive emergency: ?Code(s): I16.1 - Hypertensive emergency ?Status:?Acute ?Assessment and Plan: BP 203/144 at presentation.? well controlled Continue current medication amlodipine 10 mg daily p.o., clonidine 0.2 mg q.8 hours p.o. Change hydralazine 50 mg t.i.d. p.o. (3) Flash pulmonary edema: ?Code(s): J81.0 - Acute pulmonary edema ?Status:?Acute ?Assessment and Plan: Related to hypertensive emergency.? Resolved. Pulse ox 95 on room air Acute bacteria bronchitis Patient has cough with greenish sputum Suspecting better bronchitis, start doxycycline p.o. 100 mg q.12 hours for 5 days Moderate malnutrition BMI 17.5 Muscle waste Consult dietitian for recommendations Plans discharge patient back to longterm today Time Spent with Patient Time attestation: Total time spent providing and/or coordinating discharge services: Exam Narrative: GENERAL: Pleasant, in no acute distress. Well-nourished. - EYES: EOMI. Anicteric. - HENT: Moist mucous membranes. - LUNGS: Clear to auscultation bilaterally, no wheezing, rhonchi, or rales. - CARDIOVASCULAR: Regular rate and rhythm. No murmur. No JVD. - ABDOMEN: Soft, non-tender and non-distended. No palpable masses. - EXTREMITIES: No edema. Peripheral pulses 2+. Non-tender. - NEUROLOGIC: No focal neurological deficits. CN II-XII grossly intact. General weakness - PSYCHIATRIC: Awake, Alert and oriented x 3. Appropriate mood and affect. - SKIN: No rashes or lesions. Warm. - LYMPH: No cervical lymphadenopathy. Const: General: comfortable, no acute distress, well developed, alert, awake, ill appearing chronically, underweight and other (Patient looks older than stated age) Nutritional Appearance: underweight Orientation/consciousness: patient oriented x3 Other: On BiPAP DS: Data Data Completed and Pending Labs o
[2023-10-11] MEDS: DOXYCYCLINE HYCLATE 100 MG TABLET PO (12:59)
[2023-10-11 14:03] LABS: SARS-CoV-2 RNA PCR Negative (Negative)
== END 2023-10-11 15:35 | DRG 304 ==
LOC: ANHED 10-09 00:09 → ANHIMU 10-09 01:13 → ANH2MED 10-09 18:08
PROVIDERS: Internal Medicine; Admitting Provider Internal Medicine; Emergency Provider Emergency Medicine; PCP Internal Medicine; Visit Provider Hospitalist
DX: I16.1 Hypertensive emergency (principal); J81.0 Acute pulmonary edema; J96.01 Acute respiratory failure with hypoxia; I24.89 Other forms of acute ischemic heart disease; E44.0 Moderate protein-calorie malnutrition; Z68.1 Body mass index [BMI] 19.9 or less, adult; J20.8 Acute bronchitis due to other specified organisms; J44.9 Chronic obstructive pulmonary disease, unspecified; Z20.822 Contact with and (suspected) exposure to COVID-19; E78.5 Hyperlipidemia, unspecified; Z87.891 Personal history of nicotine dependence
CPT/HCPCS: 36415; 71045; 71275; 76775; 80053; 83605; 83735; 83880; 84100; 84484; 85025; 85380; 85610; 85730; 87040; 87635; 87637; 93005; 93306; 93976; 94002; 94640; 99285; A9270; Q9967

== ENCOUNTER 2024-02-04 18:31 | Emergency (ER) | payer OTHER, MEDICAID, SELFPAY ==
[2024-02-04] VITALS (18 sets, daily range): BP systolic 114–166; BP diastolic 66–89; PULSE 77–86; RESP 15–23; TEMP 38; O2SAT 93–98
--- NOTE | ~2024-02-04 | XR_ITS ---
Portable chest x-ray Comparison: 10/10/2023 Clinical History: Shortness of breath Findings: Lungs are clear, without focal consolidation or pleural effusion. Probable COPD. Cardiome diastinal silhouette is stable. Bones and soft tissues are unremarkable. Impression: COPD. No acute abnormality seen. Reviewed, dictated and finalized at [facility]. Impression: COPD. No acute abnormality seen.
--- NOTE | 2024-02-04 18:48 | ECG_ITS ---
[facility] [address] Test Date: 2024-02-04 Pat Name: Kaushal Tobar Department: Room: Gender: M Operations Research Engineer: : [id number] Requested By: Jnu Goetz Order Number: [id number] Yanira MD: Pro Machado M.D. Measurements Intervals [place] Rate: 80 P: 71 WV: 159 QRS: 56 QRSD: 97 T: 67 QT: 386 QTc: 448 Interpretive Statements SINUS RHYTHM NORMAL ELECTROCARDIOGRAM No previous ECG available for comparison Electronically Signed On 02-05-2024 08:08:23 CDT by Pro Machado M.D.
[2024-02-04 19:20] LABS: Basophils Absolute Auto 0.1 K/mm3 (0.0-0.1); Basophils Percent Auto 0.7 % (0.2-1.2); Eosinophils Absolute Auto 0.1 K/mm3 (0-0.3); Eosinophils Percent Auto 0.4 % (0-4.4); Hematocrit 45.2 % (42.0-52.0); Hemoglobin 16.4 g/dL (14.0-18.0); Immature Granulocyte Absolute 0.05 K/mm3 (0.00-0.031); Immature Granulocyte Percent A 0.4 % (0-0.5); Lymphocytes Absolute Auto 1.37 K/mm3 (0.9-3.2); Lymphocytes Percent Auto 9.9 % (18.3-44.2); Mean Corpuscular HGB Conc 36.3 g/dl (32-36); Mean Corpuscular Hemoglobin 31.9 pg (26-34); Mean Corpuscular Volume 87.9 fl (80-100); Mean Platelet Volume 9.7 fl (7.4-10.4); Monocytes Absolute Auto 1.8 K/mm3 (0.1-0.6); Monocytes Percent Auto 13.3 % (2.6-8.5); Neutrophils Absolute Auto 10.4 K/mm3 (1.3-6.7); Neutrophils Percent Auto 75.3 % (45.5-73.1); Platelet Count Result 283 k/mm3 (150-375); Red Blood Count 5.14 M/mm3 (4.6-6.20); Red Cell Distribution Width 14.2 % (11.5-14.5); White Blood Count 13.8 K/mm3 (4.5-10.0)
--- NOTE | 2024-02-04 19:26 | PC.NURSE ---
Report received from MIKE Morales. Assumed care of patient at this time.
[2024-02-04] MEDS: ACETAMINOPHEN 325 MG TABLET 650 MG PO (19:30)
[2024-02-04 19:34] LABS: Alanine Aminotransferase 39 U/L (6-50); Albumin Level 4.1 g/dL (3.5-5.1); Alkaline Phosphatase 72 U/L (38-126); Anion Gap 6 mmol/L (4-12); Aspartate Amino Transferase 37 U/L (17-59); Bilirubin,Total 1.2 mg/dL (0.2-1.3); Blood Urea Nitrogen 18 mg/dL (9-20); Calcium 9.1 mg/dL (8.4-10.2); Carbon Dioxide 22 mmol/L (22-30); Chloride 111 mmol/L (98-107); Estimated CRCL calculation 53 ml/min; Estimated Glomerular Filt Rate > 60; Glucose 86 mg/dL (65-110); Potassium 3.7 mmol/L (3.4-5.0); Sodium 139 mmol/L (137-145)
--- NOTE | 2024-02-04 20:02 | ED.SOB ---
HPI - SOB/Dyspnea General Chief Complaint: Shortness of Breath/Dyspnea Stated Complaint: SOB Time Seen by Provider: 02/04/24 18:56 History of Present Illness HPI Narrative: Patient presents with cough for the last few days, congestion, and chills. No chest pain, nausea vomiting, abdominal pain. No difficulty breathing. Related Data Home Medications Medication Instructions Recorded Confirmed Daily Multivitamin-Minerals 1 tablet PO DAILY 10/09/23 10/09/23 albuterol sulfate 2 puff inhalation 4-6XD PRN SOB 10/09/23 10/09/23 amlodipine 10 mg tablet 10 mg PO DAILY 10/09/23 10/09/23 aspirin 81 mg tablet,delayed 81 mg PO DAILY 10/09/23 10/09/23 release atorvastatin 20 mg tablet 20 mg PO HS 10/09/23 10/09/23 budesonide-formoterol HFA 160 2 puff inhalation BID 10/09/23 10/09/23 mcg-4.5 mcg/actuation aerosol inhaler (Symbicort) clonidine HCl 0.2 mg tablet 0.2 mg PO BID 10/09/23 10/09/23 guaifenesin 600 mg tablet, 600 mg PO Q12H 10/09/23 10/09/23 extended release 12 hr (Mucinex) hydroxyzine HCl 25 mg tablet 25 mg PO QID PRN Itching 10/09/23 10/09/23 ibuprofen 600 mg tablet 600 mg PO QID PRN Pain 10/09/23 10/09/23 propranolol 20 mg tablet 20 mg PO DAILY 10/09/23 10/09/23 thiamine HCl (vitamin B1) 100 mg 100 mg PO DAILY 10/09/23 10/09/23 tablet Allergies Allergy/AdvReac Type Severity Reaction Status Date / Time No Known Allergies Allergy Verified 02/04/24 18:41 Review of Systems Review of Systems: All systems reviewed & are unremarkable except as noted in HPI and below PMFSH Family History Family History Mother Congestive heart failure Father Chronic obstructive pulmonary disease Social History Social History Smoking status: Former smoker Alcohol intake: never Substance use: former Do You Feel Safe in your Home?: Yes Lack of Transportation: No Lack of Food: Sometimes True Current Housing: I Do Not Have Housing Concerned About Future Housing: YES Difficulty Paying Gas/Electric Bills: No Difficulty Paying for Meds: No Currently Unemployed: No Education: Grade School Difficulty w/ Childcare or Family Care: No Spiritual care concerns: No Exam Narrative: EXAMINATION OF ORGAN SYSTEMS/BODY AREAS: Constitutional: Vital signs per nursing GENERAL:[No acute distress, non-toxic appearing.] HEAD: Normal with no signs of head trauma. EYES: EOMI, conjunctiva normal ENT: Hearing grossly intact. some congestion LUNGS: Nonlabored breathing. Clear to auscultation bilaterally HEART: [Regular rate and rhythm] ABD: [Soft], [nontender to palpation] EXT: Normal range of motion SKIN: [No rashes or lesions.] NEURO: [Alert and oriented x 3. No gross focal sensory or strength deficits.] PSYCH: Normal affect Course Vital Signs Vital signs: Vital Signs Pulse Oximetry 96 02/04/24 18:28 Oxygen Delivery Nasal Cannula 02/04/24 18:28 Oxygen Flow Rate 2 02/04/24 18:28 Temperature 100.4 F H 02/04/24 18:32 Pulse Rate 79 02/04/24 21:44 Respiratory Rate 17 02/04/24 21:44 Blood Pressure 129/88 02/04/24 21:44 Pulse Oximetry 97 02/04/24 21:44 Oxygen Delivery Nasal Cannula 02/04/24 18:32 Oxygen Flow Rate 2 02/04/24 18:32 MDM - SOB/Dyspnea MDM Narrative Medical decision making narrative: patient presenting with URI symptoms, he is otherwise very well appearing here, was initially hypoxic at the long term but that was because he was not on his usual home oxygen. Lungs are clear I do not feel he needs a breathing treatment here, he does have a slight fever and with history of COPD, I will put him on antibiotics. He is otherwise very well appearing. Agreeable to outpatient management with prescriptions for cold medications, antibiotics, f/u to PCP, return precautions Lab Data 02/04/24 19:07 02/04/24
[2024-02-04 20:05] LABS: Influenza A QL RT-PCR Negative (Negative); Influenza B QL RT-PCR Negative (Negative); RSV RNA, RT-PCR Negative (Negative); SARS-CoV-2 RNA PCR Negative (Negative)
[2024-02-04] MEDS: AZITHROMYCIN 250 MG TABLET 500 MG PO (20:39)
--- NOTE | 2024-02-04 21:08 | PC.NURSE ---
Report called to dianne Flores at [facility] and rehab at [phone].
== END 2024-02-04 21:46 ==
PROVIDERS: Emergency Medicine; Emergency Provider Emergency Medicine; PCP Internal Medicine
DX: J06.9 Acute upper respiratory infection, unspecified (principal); Z20.822 Contact with and (suspected) exposure to COVID-19
CPT/HCPCS: 36415; 71045; 80053; 85025; 87637; 93005; 96365; 99284; A9270; J0696

== ENCOUNTER 2024-04-14 13:16 | Emergency (ER) | payer OTHER, MEDICAID, SELFPAY ==
[2024-04-14 13:39] VITALS: BP 180/91; PULSE 107; RESP 16; TEMP 36.9; O2SAT 99
--- NOTE | 2024-04-14 14:57 | ED.GENADULT ---
HPI - General Adult General Chief complaint: Unspecified Stated complaint: Med Refill/Shortness of Breath Source: patient Mode of arrival: ambulatory Limitations: no limitations History of Present Illness HPI narrative: Patient presents for medication refills. He indicates he needs refills amlodipine 10 mg daily, atorvastatin 20 mg daily, clonidine 0.2 mg twice daily, hydralazine 50 mg 3 times daily, hydroxyzine 25 mg every 6 hours as needed, ibuprofen 600 mg every 8 hours as needed and propanolol 20 mg daily. He has an upcoming appointment with new primary care provider, Anali Da Silva, with [facility]. He is close to running out on most of his medications. He has no physical complaints today. Related Data Home Medications Medication Instructions Recorded Confirmed Daily Multivitamin-Minerals 1 tablet PO DAILY 10/09/23 10/09/23 albuterol sulfate 2 puff inhalation 4-6XD PRN SOB 10/09/23 10/09/23 amlodipine 10 mg tablet 10 mg PO DAILY 10/09/23 10/09/23 aspirin 81 mg tablet,delayed 81 mg PO DAILY 10/09/23 10/09/23 release atorvastatin 20 mg tablet 20 mg PO HS 10/09/23 10/09/23 budesonide-formoterol HFA 160 2 puff inhalation BID 10/09/23 10/09/23 mcg-4.5 mcg/actuation aerosol inhaler (Symbicort) clonidine HCl 0.2 mg tablet 0.2 mg PO BID 10/09/23 10/09/23 hydroxyzine HCl 25 mg tablet 25 mg PO QID PRN Itching 10/09/23 10/09/23 ibuprofen 600 mg tablet 600 mg PO QID PRN Pain 10/09/23 10/09/23 propranolol 20 mg tablet 20 mg PO DAILY 10/09/23 10/09/23 Allergies Allergy/AdvReac Type Severity Reaction Status Date / Time No Known Allergies Allergy Verified 02/04/24 18:41 Review of Systems Review of Systems: CONSTITUTIONAL: Denies fever, chills, or sweats. EYES: Denies visual changes, redness, or discharge. ENT: Denies rhinorrhea, congestion, sore throat, or otalgia. CARDIOVASCULAR: Denies chest pain, palpitations, or edema. RESPIRATORY: Denies cough or dyspnea. GASTROINTESTINAL: Denies abdominal pain, nausea, vomiting, or diarrhea. GENITOURINARY: Denies dysuria or hematuria. SKIN: Denies rash or itching. MUSCULOSKELETAL: Denies back pain, joint pain, or myalgia. NEUROLOGIC: Denies headache, numbness, dizziness, or weakness. PSYCHIATRIC: Denies anxiety or depression. [facility] Past Medical History Medical History Anxiety Hyperlipidemia Hypertension Surgical History Surgical History Surgical history unknown Family History Family History Mother Congestive heart failure Father Chronic obstructive pulmonary disease Social History Social History Smoking status: Former smoker Alcohol intake: never Substance use: former Do You Feel Safe in your Home?: Yes Lack of Transportation: No Lack of Food: Sometimes True Current Housing: I Do Not Have Housing Concerned About Future Housing: YES Difficulty Paying Gas/Electric Bills: No Difficulty Paying for Meds: No Currently Unemployed: No Education: Grade School Difficulty w/ Childcare or Family Care: No Spiritual care concerns: No Exam Narrative: GENERAL: Appears chronically ill. Seated in wheelchair. In no apparent distress. HEAD: Normocephalic, atraumatic. EYES: PERRLA and EOMI. ENT: Nares clear, no rhinorrhea or epistaxis. Mucous membranes moist. Oropharynx without tonsillar hypertrophy exudate or other lesions. Bilateral TMs [place] nonbulging NECK: Supple. No adenopathy or masses. No carotid bruits or JVD CHEST: Clear to auscultation. No respiratory distress. No wheezes rales or rhonchi HEART: Regular rate and rhythm. No murmur heard. Normal peripheral pulses. ABDOMEN: Soft, nontender, nondistended, normal active bowel sounds. EXTREMITIES: Normal range of motion. No
--- NOTE | 2024-04-14 15:02 | ED.GENADULT ---
HPI - General Adult General Chief complaint: Unspecified Stated complaint: Med Refill/Shortness of Breath Source: patient Mode of arrival: ambulatory Limitations: no limitations Related Data Home Medications Medication Instructions Recorded Confirmed Daily Multivitamin-Minerals 1 tablet PO DAILY 10/09/23 10/09/23 albuterol sulfate 2 puff inhalation 4-6XD PRN SOB 10/09/23 10/09/23 amlodipine 10 mg tablet 10 mg PO DAILY 10/09/23 10/09/23 aspirin 81 mg tablet,delayed 81 mg PO DAILY 10/09/23 10/09/23 release atorvastatin 20 mg tablet 20 mg PO HS 10/09/23 10/09/23 budesonide-formoterol HFA 160 2 puff inhalation BID 10/09/23 10/09/23 mcg-4.5 mcg/actuation aerosol inhaler (Symbicort) clonidine HCl 0.2 mg tablet 0.2 mg PO BID 10/09/23 10/09/23 hydroxyzine HCl 25 mg tablet 25 mg PO QID PRN Itching 10/09/23 10/09/23 ibuprofen 600 mg tablet 600 mg PO QID PRN Pain 10/09/23 10/09/23 propranolol 20 mg tablet 20 mg PO DAILY 10/09/23 10/09/23 Allergies Allergy/AdvReac Type Severity Reaction Status Date / Time No Known Allergies Allergy Verified 02/04/24 18:41 [facility] Past Medical History Medical History Anxiety Hyperlipidemia Hypertension Surgical History Surgical History Surgical history unknown Family History Family History Mother Congestive heart failure Father Chronic obstructive pulmonary disease Social History Social History Smoking status: Former smoker Alcohol intake: never Substance use: former Do You Feel Safe in your Home?: Yes Lack of Transportation: No Lack of Food: Sometimes True Current Housing: I Do Not Have Housing Concerned About Future Housing: YES Difficulty Paying Gas/Electric Bills: No Difficulty Paying for Meds: No Currently Unemployed: No Education: Grade School Difficulty w/ Childcare or Family Care: No Spiritual care concerns: No Course Course Level of Care: Express Care Visit Vital Signs Vital signs: Vital Signs Temperature 36.9 C 04/14/24 13:39 Pulse Rate 107 H 04/14/24 13:39 Respiratory Rate 16 04/14/24 13:39 Blood Pressure 180/91 H 04/14/24 13:39 Pulse Oximetry 99 04/14/24 13:39 Oxygen Delivery Room Air 04/14/24 13:39 Temperature 36.9 C 04/14/24 13:39 Pulse Rate 107 H 04/14/24 13:39 Respiratory Rate 16 04/14/24 13:39 Blood Pressure 180/91 H 04/14/24 13:39 Pulse Oximetry 99 04/14/24 13:39 Oxygen Delivery Room Air 04/14/24 13:39 Medical Decision Making Vital Signs Vital Signs: Vital Signs Temperature 36.9 C 04/14/24 13:39 Pulse Rate 107 H 04/14/24 13:39 Respiratory Rate 16 04/14/24 13:39 Blood Pressure 180/91 H 04/14/24 13:39 Pulse Oximetry 99 04/14/24 13:39 Oxygen Delivery Room Air 04/14/24 13:39 Temperature 36.9 C 04/14/24 13:39 Pulse Rate 107 H 04/14/24 13:39 Respiratory Rate 16 04/14/24 13:39 Blood Pressure 180/91 H 04/14/24 13:39 Pulse Oximetry 99 04/14/24 13:39 Oxygen Delivery Room Air 04/14/24 13:39 Discharge Plan Discharge Clinical Impression: Medication refill Patient Disposition: Home, Self-Care Condition: Stable Instructions: Antibiotic Form, Medicine Refill (ED) Patient Language: Mohawk Prescriptions: New amlodipine [Norvasc] 10 mg tablet 10 mg PO DAILY Qty: 30 0RF atorvastatin 20 mg tablet 20 mg PO DAILY Qty: 30 0RF clonidine HCl 0.2 mg tablet 0.2 mg PO BID Qty: 60 0RF hydralazine 50 mg tablet 50 mg PO TID Qty: 90 0RF hydroxyzine HCl 25 mg tablet 25 mg PO Q6H PRN (Reason: anxiety) Qty: 120 0RF ibuprofen 600 mg tablet 600 mg PO Q6H PRN (Reason: pain) Qty: 120 0RF propranolol 20 mg tablet 20 mg PO DAILY Qty:
== END 2024-04-14 15:02 | disposition home or self-care (01) ==
PROVIDERS: Emergency Provider Nurse Practitioner
DX: Z76.0 Encounter for issue of repeat prescription (principal); Z87.891 Personal history of nicotine dependence; I10 Essential (primary) hypertension; E78.5 Hyperlipidemia, unspecified; F41.9 Anxiety disorder, unspecified; Z79.82 Long term (current) use of aspirin
CPT/HCPCS: 99211; G0463